=== PATIENT | female | born 2005 | race Caucasian/White ===

== ENCOUNTER 2025-05-09 19:02 | Emergency (ER) | payer OTHER, SELFPAY ==
[2025-05-09 19:13] VITALS: BP 109/69; PULSE 90; RESP 16; TEMP 36.4; O2SAT 100
[2025-05-09 19:28] LABS: EDUAAPPEAR Cloudy; EDUABILI Negative (Negative); EDUABLOOD 3+ (Negative); EDUACOLOR1 Yellow; EDUAGLUCOSE Negative (Negative); EDUAKETONE Negative (Negative); EDUALEUKO 2+ (Negative); EDUANITRATE Negative (Negative); EDUAPH 5.5; EDUAPROTEIN 1+ (Negative); EDUASPGRAVITY 1.030; EDUAUROBILI 0.2
--- NOTE | 2025-05-09 19:35 | ED.GENADULT ---
HPI - General Adult General Chief complaint: Urogenital-Female Stated complaint: UTI SYMPTOMS Source: patient Mode of arrival: ambulatory Limitations: no limitations History of Present Illness HPI narrative: Patient presents for evaluation of urinary symptoms. She indicates she has a history of recurrent urinary tract infections. She has had symptoms for several days which worsened today. She reports dysuria, foul-smelling urine, urinary frequency and urgency. She denies any fever, chills, nausea, abdominal pain. She does have some left lower back pain. She recently moved to the area and is planning on establishing care with Urology. Sounds like she was admitted to the hospital few weeks ago for a kidney stone and urinary tract infection. She was able to pass the stone without intervention. She states the current left lower back pain is not similar to that that she experienced when she was admitted. The pain she was admitted with severe, 9/10 severity, and sharp. Pain she is experiencing currently is 3/10 and a mild dull ache. She denies any vaginal bleeding or discharge. Last menstrual period about a month ago. She is not on contraception but not sexually active. Related Data Home Medications ?Medication ?Instructions ?Recorded ?Confirmed ?Last Taken ?Type levothyroxine 112 mcg tablet mcg 05/09/25 Unknown History Allergies Allergy/AdvReac Type Severity Reaction Status Date / Time gluten Allergy Severe GI upset Verified 05/09/25 19:12 Review of Systems Review of Systems: CONSTITUTIONAL: Denies fever, chills, or sweats. EYES: Denies visual changes, redness, or discharge. ENT: Denies rhinorrhea, congestion, sore throat, or otalgia. CARDIOVASCULAR: Denies chest pain, palpitations, or edema. RESPIRATORY: Denies cough or dyspnea. GASTROINTESTINAL: Denies abdominal pain, nausea, vomiting, or diarrhea. GENITOURINARY: reports foul-smelling urine, urinary frequency, urgency, and dysuria. Denies vaginal bleeding or discharge. SKIN: Denies rash or itching. MUSCULOSKELETAL: Reports left lower back pain. Denies joint pain, or myalgia. NEUROLOGIC: Denies headache, numbness, dizziness, or weakness. PSYCHIATRIC: Denies anxiety or depression. [facility] Past Medical History Medical History Recurrent urinary tract infection Kidney stone Surgical History Surgical History No pertinent past surgical history Family History Family History Mother Family history unknown Social History Social History Substance use: never Occupation/Education: student Gender identity (if verbalized by the patient): Female Spiritual care concerns: No Exam Narrative: GENERAL: Well-appearing, well-nourished, and in no acute distress. HEAD: Normocephalic, atraumatic. EYES: PERRLA and EOMI. ENT: Nares clear, no rhinorrhea or epistaxis. Mucous membranes moist. Oropharynx without tonsillar hypertrophy exudate or other lesions. Bilateral TMs pearly corey nonbulging NECK: Supple. No adenopathy or masses. No carotid bruits or JVD CHEST: Clear to auscultation. No respiratory distress. No wheezes rales or rhonchi HEART: Regular rate and rhythm. No murmur heard. Normal peripheral pulses. ABDOMEN: Soft, nontender, nondistended, normal active bowel sounds. EXTREMITIES: Normal range of motion. No edema. BACK: No CVA tenderness SKIN: Warm, dry, no rash. NEURO: No focal deficits. Alert and oriented x3. PSYCH: Normal mood and affect. Course Course Emergency Course: This is a 20-year-old female who presented for evaluation of urinary symptoms. She has evidence of urinary tract infection based upon presence of leukocytes in her urine. will send urine for culture. She indicates she typically does not respond to Macrobid and cephalexin is usually effective. I did advise her to monitor her low back pain closely and if it worsens go to the emergency department to ensure she does not have a kidney stone. She assures me that her pain the present time is very mild and not consistent with the pain she had in the past with a kidney stone. I provided her with the contact information for Urology. She should increase her fluid intake. Will also discharge her with pyridium. She will go to the emergency department if she has worsening symptoms. Patient in agreement with plan of care. Level of Care: Express Care Visit Vital Signs Vital signs: Vital Signs Temperature 36.4 C L 09/07/25 19:13 Pulse Rate 90 05/09/25 19:13 Respiratory Rate 16 05/09/25 19:13 Blood Pressure 109/69 05/09/25 19:13 Pulse Oximetry 100 05/09/25 19:13 Temperature 36.4 C L 05/09/25 19:13 Pulse Rate 90 05/09/25 19:13 Respiratory Rate 16 05/09/25 19:13 Blood Pressure 109/69 05/09/25 19:13 Pulse Oximetry 100 05/09/25 19:13 Medical Decision Making Vital Signs Vital Signs: Vital Signs Temperature 36.4 C L 05/09/25 19:13 Pulse Rate 90 05/09/25 19:13 Respiratory Rate 16 05/09/25 19:13 Blood Pressure 109/69 05/09/25 19:13 Pulse Oximetry 100 05/09/25 19:13 Temperature 36.4 C L 05/09/25 19:13 Pulse Rate 90 05/09/25 19:13 Respiratory Rate 16 05/09/25 19:13 Blood Pressure 109/69 05/09/25 19:13 Pulse Oximetry 100 05/09/25 19:13 Lab Data Labs: Lab Results 05/09/25 Range/Units 19:18 POC Urine Color Yellow POC Urine Clarity Cloudy POC Urine pH 5.5 POC Ur Specif [place] 1.030 POC Urine Protein 1+ (Negative) POC Ur Glucose (UA) Negative (Negative) POC Urine Ketones Negative (Negative) POC Urine Blood 3+ (Negative) POC Urine Nitrite Negative (Negative) POC Urine Bilirubin Negative (Negative) POC Urine Urobilinogen 0.2 POC U Leukocyte Esteras 2+ (Negative) Discharge Plan Discharge Clinical Impression: Urinary tract infection Patient Disposition: Home Condition: Stable Instructions: Antibiotic Form, Urinary Tract Infection in Women (DC) Patient Language: Tajik Prescriptions: New cephalexin 500 mg capsule 500 mg PO Q12H Qty: 14 0RF phenazopyridine [Pyridium] 200 mg tablet 200 mg PO TID Qty: 6 0RF No Action levothyroxine 112 mcg tablet Follow-up/Referrals: Osmin Clancy MD [Physician, Urology] Estuardo Sellers MD [Physician, Family Practice] Time of Disposition: 19:29
== END 2025-05-09 19:32 | disposition home or self-care (01) ==
PROVIDERS: Emergency Provider Nurse Practitioner
DX: N39.0 Urinary tract infection, site not specified (principal)
CPT/HCPCS: 81003; 87086; 99203; G0463

== ENCOUNTER 2025-05-22 12:44 | Emergency (ER) | payer OTHER, SELFPAY ==
[2025-05-22 13:02] VITALS: BP 96/85; PULSE 80; RESP 16; TEMP 36.8; O2SAT 100
--- NOTE | 2025-05-22 13:11 | ED_ITS ---
HPI - Female Genitourinary General Chief complaint: Urogenital-Female Stated complaint: uti Time Seen by Provider: 05/22/25 13:21 Source: patient and RN notes reviewed Mode of arrival: ambulatory Limitations: no limitations History of Present Illness HPI Narrative: 20-year-old female presents with concern for dysuria, urgency for several days. Reports she gets frequent UTIs and recently moved here and does not have a urologist. Reports she had a urinary tract infection that she was treated with cephalexin with about 2 weeks ago. She denies fever, nausea, vomiting. MD elicited complaint: UTI Related Data Home Medications ?Medication ?Instructions ?Recorded ?Confirmed ?Last Taken ?Type levothyroxine 112 mcg tablet mcg 05/09/25 Unknown His tory Allergies Allergy/AdvReac Type Severity Reaction Status Date / Time gluten Allergy Severe GI upset Verified 05/22/25 13:10 Review of Systems Review of Systems: CONSTITUTIONAL: Denies malaise, chills, sweats, or fever. CARDIOVASCULAR: Denies chest pain, palpitations, or edema. RESPIRATORY: Denies cough or dyspnea. GASTROINTESTINAL: Denies abdominal pain, nausea, vomiting, diarrhea GENITOURINARY: Reports dysuria, frequency, urgency. Denies flank pain or hematuria. SKIN: Denies rash or itching. MUSCULOSKELETAL: Reports back pain. Denies myalgia. All systems reviewed & are unremarkable except as noted in HPI and below PMFSH Past Medical History Medical History Recurrent urinary tract infection Kidney stone Surgical History Surgical History No pertinent past surgical history Family History Family History Mother Family history unknown Social History Social History Substance use: never Occupation/Education: student Gender identity (if verbalized by the patient): Female Spiritual care concerns: No Comments At time of signature, agree with nursing past medical, surgical, social and family history. There is no relevant family history pertinent to the presenting complaint Exam Narrative: GENERAL: Well-appearing, well-nourished, and in no acute distress. HEAD: Normocephalic. EYES: PERRLA, conjunctivae clear. NECK: Supple. No lymphadenopathy CHEST: Clear to auscultation. No respiratory distress. HEART: Regular rate and rhythm. ABDOMEN: Soft, nontender upon palpation, nondistended, no palpable or pulsatile masses, no guarding. No CVA tenderness SKIN: Warm, dry, no rash. NEURO: Alert and oriented x3. PSYCH: Normal mood and affect Course Course Emergency Course: Patient is aware of diagnosis, understands and agrees to treatment plan. Anticipatory guidance given. Patient agrees to follow-up as directed and is aware of reasons to seek care at the emergency department. Portions of this record may have been created with voice recognition software Level of Care: Express Care Visit Vital Signs Vital signs: Vital Signs Temperature 98.3 F 05/22/25 13:02 Pulse Rate 80 05/22/25 13:02 Respiratory Rate 16 05/22/25 13:02 Blood Pressure 96/85 L 05/22/25 13:02 Pulse Oximetry 100 05/22/25 13:02 Temperature 98.3 F 05/22/25 13:02 Pulse Rate 80 05/22/25 13:02 Respiratory Rate 16 05/22/25 13:02 Blood Pressure 96/85 L 05/22/25 13:02 Pulse Oximetry 100 05/22/25 13:02 Reviewed. MDM - Female Genitourinary MDM Narrative Medical decision making narrative: Exam findings and UA show no acute concerns or changes; patient is non-toxic appearing and is in no distress. Patient is appropriate for outpatient treatment and follow-up. Differential Diagnosis Differential diagnosis: Likely urinary tract infection and cystitis Critical Care Time Critical Care Time Critical Care Time: No Discharge Plan Discharge Clinical Impression: Symptoms of urinary tract infection Patient Disposition: Home Condition: Stable Instructions: Antibiotic Form, Urinary Tract Infection in Women (ED) Additional Instructions: We will send a urine culture to the lab; if the culture identifies an organism that the prescribed antibiotic will not treat, you will receive a phone call from an urgent care staff member and an appropriate antibiotic will be prescribed. -Your symptoms should begin to improve within a day of starting antibiotics. But you should finish all the antibiotic pills you get. Otherwise your infection might come back. -Also recommend: increase water intake. Tylenol/ibuprofen as needed for pain or fever -Follow-up with your primary care provider for urine recheck or seek ER visit if condition worsens with high fever, nausea, vomiting and severe back pain. Patient Language: Lithuanian Prescriptions: New ciprofloxacin HCl 500 mg tablet 500 mg PO Q12H 7 Days Qty: 14 0RF No Action levothyroxine 112 mcg tablet Follow-up/Referrals: PHYSICIAN,VOCATIONAL EDUCATION TEACHER [Primary Care Provider, Internal Medicine] Willian Billingsley MD [Physician, Urology] Time of Disposition: 13:25
[2025-05-22 13:23] LABS: EDUAAPPEAR Cloudy; EDUABILI Negative (Negative); EDUABLOOD 3+ (Negative); EDUACOLOR1 Yellow; EDUAGLUCOSE Negative (Negative); EDUAKETONE Negative (Negative); EDUALEUKO 2+ (Negative); EDUANITRATE Negative (Negative); EDUAPH 6.0; EDUAPROTEIN 2+ (Negative); EDUASPGRAVITY 1.025; EDUAUROBILI 0.2
== END 2025-05-22 13:28 | disposition home or self-care (01) ==
PROVIDERS: Emergency Provider Nurse Practitioner
DX: R30.0 Dysuria (principal); R39.15 Urgency of urination
CPT/HCPCS: 81003; 87086; 99213; G0463

== ENCOUNTER 2025-06-30 10:25 | Emergency (ER) | payer OTHER, SELFPAY ==
[2025-06-30 10:34] VITALS: BP 110/66; PULSE 60; RESP 18; TEMP 36.6; O2SAT 99
[2025-06-30 10:50] LABS: EDUAAPPEAR Cloudy; EDUABILI Negative (Negative); EDUABLOOD 1+ (Negative); EDUACOLOR1 Yellow; EDUAGLUCOSE Negative (Negative); EDUAKETONE Negative (Negative); EDUALEUKO 2+ (Negative); EDUANITRATE Negative (Negative); EDUAPH 6.0; EDUAPROTEIN 1+ (Negative); EDUASPGRAVITY 1.025; EDUAUROBILI 0.2
--- NOTE | 2025-06-30 10:51 | ED_ITS ---
HPI - Female Genitourinary General Chief complaint: Urogenital-Female Stated complaint: Uti Symptoms Time Seen by Provider: 06/30/25 10:51 Source: patient Mode of arrival: ambulatory Limitations: no limitations History of Present Illness HPI Narrative: 20-year-old female presents with complaint of urinary frequency, urgency, dysuria, chills and nausea for 24 hours. Patient concerned for urinary tract infection. Denies concern for or STI. All systems reviewed and negative except as noted above. Related Data Home Medications ?Medication ?Instructions ?Recorded ?Confirmed ?Last Taken ?Type levothyroxine 112 mcg tablet 112 mcg PO DAILY 05/09/25 06/30/25 Unknown History Allergies Allergy/AdvReac Type Severity Reaction Status Date / Time gluten Allergy Severe GI upset Verified 06/30/25 10:30 [facility] Past Medical History Medical History Recurrent urinary tract infection Kidney stone Surgical History Surgical History No pertinent past surgical history Family History Family History Mother Family history unknown Social History Social History Substance use: never Occupation/Education: student Gender identity (if verbalized by the patient): Female Spiritual care concerns: No Comments At time of signature, agree with nursing past medical, surgical, social and family history. There is no relevant family history pertinent to the presenting complaint. Exam Narrative: GENERAL: This is a well-nourished, well-developed patient, in no apparent distress. HEAD: normocephalic, atraumatic. EYES: PERRL. Sclera clear/white. Vision is grossly intact. EARS: External ears normal NOSE: External nose normal NECK: Neck supple, non-tender without lymphadenopathy, masses or thyromegaly. CARDIOVASCULAR: Regular rate and rhythm without murmurs, gallops, or rubs. RESPIRATORY: Clear to auscultation. Breath sounds equal bilaterally. No wheezes, rales, or rhonchi. SKIN: warm, Dry, intact with no suspicious lesions or rash, good texture and turgor. NEURO: awake, alert, and oriented to person, place and time. There were no obvious focal neurologic abnormalities. EXTREMITIES: No joint tenderness, effusion, or edema noted. Course Course Level of Care: Express Care Visit Vital Signs Vital signs: Vital Signs Temperature 36.6 C 06/30/25 10:34 Pulse Rate 60 06/30/25 10:34 Respiratory Rate 18 06/30/25 10:34 Blood Pressure 110/66 06/30/25 10:34 Pulse Oximetry 99 06/30/25 10:34 Temperature 36.6 C 06/30/25 10:34 Pulse Rate 60 06/30/25 10:34 Respiratory Rate 18 06/30/25 10:34 Blood Pressure 110/66 06/30/25 10:34 Pulse Oximetry 99 06/30/25 10:34 Reviewed MDM - Female Genitourinary MDM Narrative Medical decision making narrative: Urinalysis 2+ leukocytes, 1+ blood. Will treat for urinary tract infection due to patient's symptoms. Urine culture pending. Differential Diagnosis Differential diagnosis: Likely urinary tract infection Lab Data Labs: Lab Results 06/30/25 Range/Units 10:48 POC Urine Color Yellow POC Urine Clarity Cloudy POC Urine pH 6.0 POC Ur Specif [place] 1.025 POC Urine Protein 1+ (Negative) POC Ur Glucose (UA) Negative (Negative) POC Urine Ketones Negative (Negative) POC Urine Blood 1+ (Negative) POC Urine Nitrite Negative (Negative) POC Urine Bilirubin Negative (Negative) POC Urine Urobilinogen 0.2 POC U Leukocyte Esteras 2+ (Negative) Discharge Plan Discharge Clinical Impression: Urinary tract infection Patient Disposition: Home Condition: Stable Instructions: Antibiotic Form, Urinary Tract Infection in Women (ED) Additional Instructions: Take antibiotic as prescribed until gone. Drink at least 64 oz of water a day. See your doctor if not improving. If you have severe pain, fever, vomiting go to the ER. Patient Language: Pashto Prescriptions: New amoxicillin-pot clavulanate [Augmentin] 500-125 mg tablet 1 tablet PO BID 5 Days Qty: 10 0RF No Action levothyroxine 112 mcg tablet 112 mcg PO DAILY Follow-up/Referrals: PHYSICIAN,DIRECTOR OF DIGITAL MARKETING [Primary Care Provider, Internal Medicine] Time of Disposition: 10:55
== END 2025-06-30 10:57 | disposition home or self-care (01) ==
PROVIDERS: Emergency Provider Nurse Practitioner Family
DX: N39.0 Urinary tract infection, site not specified (principal)
CPT/HCPCS: 81003; 87086; 99213; G0463